=== PATIENT | male | born 1935 | race Caucasian/White ===

== ENCOUNTER 2017-04-03 10:37 | Emergency (ER) | payer OTHER ==
[~2017-04-03] VITALS: Ht 190.5 cm; Wt 104.5 kg
[~2017-04-03 10:37] MED LIST: ASPIR-LOW81 MG PO; CALCIUM + D3 E1 EACH PO; INHALER; PRILOSEC20 MG PO; QVAR 80 MCG IN7.3 GM IH; SIMVASTATIN20 MG PO
[2017-04-03 11:43] LABS: EOSINOPHIL (%) 5.4 % (0-5); EOSINOPHIL COUNT 0.3 K/uL (0-0.3); IMMATURE GRANULOCYTE (%) 0.4 % (0.0-0.7); INSTRUMENT ABS NEUTROPHIL CT 3.3 K/uL; LYMPHOCYTE COUNT 1.1 K/uL (1.0-2.8); MCH 31.4 PG (29.0-34.0); MCV 92.1 FL (86-99); MEAN PLAT.VOLUME 9.4 uM^3 (9.0-12.4); MONOCYTE (%) 9.8 % (3-12); MONOCYTE COUNT 0.5 K/uL (0-0.8); NEUTROPHIL (%) 63.6 % (45-76); NEUTROPHIL COUNT 3.3 K/uL (1.8-6.4); PLATELET COUNT 247 K/uL (156-360); RBC DIS.WIDTH-CV 12.4 % (11.8-14.6); RBC DIS.WIDTH-SD 42.2 % (39-53); RED BLOOD COUNT 4.56 M/uL (4.00-5.50); WHITE BLOOD COUNT 5.2 K/uL (4.1-10.2)
[2017-04-03 12:02] LABS: CHLORIDE 107 mEq/L (99-109); MAGNESIUM 2.2 mg/dL (1.3-2.7); SODIUM 138 mEq/L (136-147)
[2017-04-03 12:04] LABS: GLUCOSE 86 mg/dL (70-99); TROP-I INTERPRETATION NEGATIVE; TROPONIN-I 0.02 ng/mL (0.0-0.30)
[2017-04-03 12:05] LABS: ANION GAP 13 MEQ/L (2-14)
[2017-04-03 12:06] LABS: TOTAL BILIRUBIN 0.6 mg/dL (0.0-1.0)
[2017-04-03 12:07] LABS: ALKALINE PHOSPHATASE 74 IU/L (3-129)
[2017-04-03 12:08] LABS: GFR ESTIMATE (CALCULATED) 56 mL/min/
[2017-04-03 12:09] LABS: UREA NITROGEN (BUN) 16 mg/dL (9-23)
[2017-04-03 12:11] LABS: CREATINE KINASE 58 IU/L (1-294); TOTAL CK 58 IU/L (1-294)
[2017-04-03 12:17] LABS: CK-MB 1.8 ng/mL (0.0-4.9)
[2017-04-03 14:21] LABS: TROP-I INTERPRETATION NEGATIVE; TROPONIN-I 0.01 ng/mL (0.0-0.30)
[2017-04-03 15:24] VITALS: BP 140/81
== END 2017-04-03 15:25 | disposition home or self-care (01) ==
LOC: EME 10:37
PROVIDERS: Emergency Medicine
DX: R07.9 Chest pain, unspecified (principal); E78.5 Hyperlipidemia, unspecified; K21.9 Gastro-esophageal reflux disease without esophagitis; Z87.891 Personal history of nicotine dependence
CPT/HCPCS: 71010; 80053; 82550; 82553; 83735; 84484; 85025; 93005; 99281; 99285